=== PATIENT | female | born 1940 | race Caucasian/White ===

== ENCOUNTER 2022-04-16 08:47 | Emergency (ER) | payer MEDICARE | END 2022-04-16 09:28 | disposition home or self-care (01) | LOC: JP.ED 08:47 | DX: K04.7 Periapical abscess without sinus (principal); I10 Essential (primary) hypertension; Z79.899 Other long term (current) drug therapy; Z90.49 Acquired absence of other specified parts of digestive tract | CPT/HCPCS: 99282 ==

== ENCOUNTER 2022-04-19 11:43 | Emergency (ER) | payer MEDICARE | END 2022-04-19 13:30 | disposition home or self-care (01) | LOC: JP.ED 11:43 | DX: R55 Syncope and collapse (principal); I10 Essential (primary) hypertension; Z91.040 Latex allergy status; Z79.899 Other long term (current) drug therapy; Z90.49 Acquired absence of other specified parts of digestive tract | CPT/HCPCS: 36415; 80048; 85025; 99285 ==